=== PATIENT | female | born 1960 | race African-American/Black ===

== ENCOUNTER 2019-05-20 02:13 | Emergency (ER) | payer BC, OTHER ==
[~2019-05-20] VITALS: Ht 162.6 cm; Wt 68.0 kg
[2019-05-20] MEDS ORDERED: CYCLOBENZAPRINE 10MG TABLET PO ONE (07:00)
[2019-05-20] MEDS ORDERED: KETOROLAC 60MG/2ML VIAL IM ONE (07:00)
[2019-05-20 08:50] VITALS: BP 111/69
[2019-05-20] MEDS ORDERED: ACETAMINOPHEN WITH CODEINE 300/30MG TABLET PO ONE (09:00)
== END 2019-05-20 08:56 | disposition home or self-care (01) ==
LOC: ER 02:13
DX: S30.0XXA Contusion of lower back and pelvis, initial encounter (principal); Y08.89XA Assault by other specified means, initial encounter; Y93.89 Activity, other specified; Y92.018 Other place in single-family (private) house as the place of occurrence of the external cause
CPT/HCPCS: 72100; 96372; 99283; J1885

== ENCOUNTER 2019-06-19 14:36 | Emergency (ER) | payer SELFPAY ==
[~2019-06-19] VITALS: Ht 149.9 cm; Wt 77.0 kg
[2019-06-19 14:46] VITALS: BP 134/84
[2019-06-19 17:15] LABS: CLARITY URINE CLOUDY (CLEAR); COLOR URINE YELLOW (YELLOW); KETONES URINE TRACE (NEGATIVE); LEUKOCYTE ESTERASE URINE NEGATIVE (NEGATIVE); NITRITE URINE NEGATIVE (NEGATIVE); OCCULT BLOOD URINE TRACE (NEGATIVE); PH URINE 5.5 (4.5-8.0); PROTEIN URINE NEGATIVE (NEGATIVE); UROBILINOGEN URINE 0.2 E.U./dL (0.2-1.0)
[2019-06-19] MEDS ORDERED: METHYLPREDNISOLONE SOD SUCC 125 MG/2 ML VIAL IM STA (17:23)
== END 2019-06-19 18:01 | disposition home or self-care (01) ==
LOC: ER 14:36
DX: M54.5 Low back pain (principal); M54.32 Sciatica, left side
CPT/HCPCS: 81003; 96372; 99283; J2930; Z7610